=== PATIENT | female | born 1985 | race African-American/Black ===

== ENCOUNTER 2018-09-17 00:38 | Emergency (ER) | payer OTHER ==
[~2018-09-17] VITALS: Ht 162.6 cm; Wt 98.4 kg
--- OUTSIDE RECORDS SUMMARY | 2018-09-17 00:41 | XMS REPORT | Clinical Summary ---
Author Author [facility] Organization [facility] Address Unknown Phone Unavailable Care Team Providers Care Dowel Inspector Name Role Phone Grace Lexii Mccoy ADHESIVE SPRAYER PCP Allergies No Known Allergies Medications End Date Status Medication Sig Dispensed Refills Start Date Active blood glucose Use as 1 Kit 0 meterIndications: New directed to 8 onset type 2 diabetes test glucose mellitus twice a week. Active blood glucose test 2 times 50 Each 3 stripsIndications: New weekly to 8 onset type 2 diabetes test blood mellitus sugar. Active metFORMIN (GLUCOPHAGE) Take 1 tablet 180 tablet 1 500 mg tabletIndications: by mouth 2 8 New onset type 2 diabetes times daily mellitus (with meals). Active lancets 28 2 times 100 Each 3 gaugeIndications: New weekly. 8 onset type 2 diabetes mellitus Active ibuprofen (MOTRIN) 600 mg Take 1 tablet 30 tablet 0 tabletIndications: by mouth 9 Retained dental root every 8 hours as needed for Pain. Active acetaminophen-codeine Take 1 tablet 10 tablet 0 (TYLENOL/CODEINE #3) by mouth 9 300-30 mg per every 4 hours tabletIndications: as needed for Retained dental root Pain. Active lisinopril (PRINIVIL, Take 1 tablet 90 tablet 0 ZESTRIL) 20 mg by mouth 9 tabletIndications: daily Needs Hypertension goal BP labs, (blood pressure) < appointment 130/80, Controlled type 2 prior to diabetes mellitus without additional complication, without refills. long-term current use of insulin Active chlorhexidine (PERIDEX) Swish with 473 mL 0 0.12 % mouth 1/2 oz of 9 washIndications: Active solution in dental caries mouth for 30 seconds and spit. Use twice daily.. Active acetaminophen-codeine Take 1 tablet 12 tablet 0 (TYLENOL/CODEINE #3) by mouth 9 300-30 mg per every 6 hours tabletIndications: Active as needed for dental caries up to 12 doses for Pain. 11/16/2017 Discontinued blood glucose Use as 1 Kit 0 meterIndications: New directed to 6 onset type 2 diabetes test glucose mellitus twice a week. 11/16/2017 Discontinued lancets 28 2 times 100 Each 3 gaugeIndications: New weekly. 6 onset type 2 diabetes mellitus 11/16/2017 Discontinued blood glucose test 2 times 50 Each 3 stripsIndications: New weekly to 6 onset type 2 diabetes test blood mellitus sugar. 11/16/2017 Discontinued hydrochlorothiazide Take 1 tablet 30 tablet 6 (HYDRODIURIL) 25 mg by mouth 6 tabletIndications: daily. Essential hypertension 11/16/2017 Discontinued enalapril (VASOTEC) 5 mg Take 1 tablet 30 tablet 6 tabletIndications: New by mouth 6 onset type 2 diabetes daily. mellitus, Essential hypertension, benign 11/16/2017 Discontinued metFORMIN (GLUCOPHAGE) Take 1 tablet 180 tablet 1 500 mg tabletIndications: by mouth 2 6 New onset type 2 diabetes times daily mellitus (with meals). 11/16/2017 Discontinued amLODIPine (NORVASC) 10 Take 1 tablet 30 tablet 0 mg tabletIndications: by mouth 8 Essential hypertension, daily. benign 11/16/2017 Discontinued metFORMIN (GLUCOPHAGE) Take 1 tablet 180 tablet 1 500 mg tabletIndications: by mouth 2 8 New onset type 2 diabetes times daily mellitus (with meals). 11/16/2017 Discontinued enalapril (VASOTEC) 5 mg Take 1 tablet 30 tablet 6 tabletIndications: New by mouth 8 onset type 2 diabetes daily. mellitus, Essential hypertension, benign 11/16/2017 Discontinued blood glucose Use as 1 Kit 0 meterIndications: New directed to 8 onset type 2 diabetes test glucose mellitus twice a week. 11/16/2017 Discontinued blood glucose test 2 times 50 Each 3 stripsIndications: New weekly to 8 onset type 2 diabetes test blood mellitus sugar. 11/16/2017 Discontinued lancets 28 2 times 100 Each 3 gaugeIndications: New weekly. 8 onset type 2 diabetes mellitus 05/15/2018 tropicamide (MYDRIACYL) Instill 1 15 mL 0 0.5 % ophthalmic Drop in each 8 solutionIndications: New eye daily as onset type 2 diabetes needed for up mellitus to 1 dose (for poor retina scan image). 04/16/2018 Discontinued enalapril (VASOTEC) 5 mg Take 1 tablet 90 tablet 1 tabletIndications: New by mouth 8 onset type 2 diabetes daily. mellitus, Essential hypertension, benign 07/29/2018 Discontinued lisinopril (PRINIVIL) 20 Take 1 tablet 90 tablet 0 mg tabletIndications: by mouth 8 Hypertension goal BP daily. (blood pressure) < 130/80, Controlled type 2 diabetes mellitus without complication, without long-term current use of insulin 08/05/2018 chlorhexidine (PERIDEX) Swish with 473 mL 0 0.12 % mouth 1/2 oz of 9 washIndications: Retained solution in dental root mouth for 30 seconds and spit. Use twice daily.. 08/05/2018 metroNIDAZOLE (FLAGYL) Take 1 tablet 14 tablet 0 500 mg tabletIndications: by mouth 2 9 Bacterial vaginosis, times daily Trichimoniasis for 7 days. 09/10/2018 ibuprofen (MOTRIN) 600 mg Take 1 tablet 30 tablet 0 tabletIndications: Active by mouth 9 dental caries every 6 hours as needed for up to 5 days for Pain. Active Problems Problem Noted Date S/P tubal ligation 05/22/2016 New onset type 2 diabetes mellitus 12/15/2015 Non morbid obesity due to excess calories 12/15/2015 Essential hypertension, benign 05/10/2015 Prediabetes 11/30/2014 Anemia 11/30/2014 Fracture, tooth 10/13/2014 HTN (hypertension) Encounters Care Team Description Date Type Specialty Checo Sol DDS Active dental caries (Primary Dx) 09/05/2018 Office Visit Oral Surgery Checo Sol DDS [place], Phillip A, DDS Surgical follow-up care (Primary Dx) 08/28/2018 Office Visit Oral Surgery 08/28/2018 Travel Nimisha Perez NP Bacterial vaginosis (Primary Dx); Trichimoniasis; Vaginal discharge; Essential hypertension 07/29/2018 Same Day Family Practice Gino Alves MD Hypertension goal BP (blood pressure) < 130/80; Controlled type 2 diabetes mellitus without complication, without long-term current use of insulin 07/29/2018 Refill Family Practice Soo Chaudhari PA Chen, Joseph J, DDS Retained dental root (Primary Dx) 07/22/2018 Office Visit Oral Surgery 07/22/2018 Travel Lexii Edwards NP Hypertension goal BP (blood pressure) < 130/80 (Primary Dx); Controlled type 2 diabetes mellitus without complication, without long-term current use of insulin; Missed menses; Right wrist pain; Snoring; History of tubal ligation 04/16/2018 Office Visit Family Practice Checo Sol DDS Dental caries (Primary Dx) 03/11/2018 Office Visit Oral Surgery Gino Alves MD New onset type 2 diabetes mellitus 12/10/2017 Ancillary Ophthalmology Procedure Gino Alves MD Rosette, Nichole W, NP Encounter to discuss test results (Primary Dx); New onset type 2 diabetes mellitus; Essential hypertension, benign; Cyst of right ovary; Obesity (BMI 30-39.9) 11/16/2017 Office Visit Family Practice Olegario Contreras DMD Dental caries extending into pulp (Primary Dx) 11/16/2017 Office Visit Dentistry Lexii Edwards NP New onset type 2 diabetes mellitus 11/16/2017 Orders Only Family Practice after 09/16/2017 Immunizations Name Dates Previously Given Next Due Lidocaine 1% 5ml Inj 08/20/2014 Ceftriazone 250mg 08/20/2014 Injection Influenza Vaccine 07/29/2018 (Deferred: Other), 05/10/2015 (Deferred: Patient Refused), 08/20/2014 (Deferred: Patient Refused) PNEUMOCOCCAL 23-VALPS 02/17/2016 (Deferred: Patient Refused) VACCINE 25 MCG/0.5 ML INJECTION Family History Medical History Relation Name Comments Diabetes Brother Hypertension Brother Psychiatry Brother anxiety Diabetes Father Hypertension Father Pulmonary Maternal anxiety Grandfather Pulmonary Maternal anxiety Grandmother Diabetes Mother Hypertension Mother Psychiatry Mother anxiety Diabetes Other Diabetes Other Diabetes Paternal Grandfather Hypertension Paternal Grandfather Diabetes Paternal Grandmother Hypertension Paternal Grandmother Diabetes Sister Hypertension Sister Relation Name Status Comments Brother Brother Brother Father Maternal Grandfather Maternal Grandmother Mother Other Other Paternal Grandfather Paternal Grandmother Sister Sister Social History Date Tobacco Use Types Packs/Day Years Used Never Smoker Smokeless Tobacco: Never Used Tobacco Cessation: Counseling Given: No Alcohol Use Drinks/Week oz/Week Comments No 0 Standard 0.0 drinks or equivalent Sex Assigned at Date Recorded Not on file Industry Job Start Date Occupation Not on file Not on file Not on file Travel End Travel History Travel Start No recent travel history available. Last Filed Vital Signs Time Taken Vital Sign Reading 09/05/2018 10:51 AM CDT Blood Pressure 175/107 09/05/2018 10:51 AM CDT Pulse 78 09/05/2018 10:51 AM CDT Temperature 36.7 C (98.1 F) 09/05/2018 10:51 AM CDT Respiratory Rate 18 09/05/2018 10:51 AM CDT Oxygen Saturation 100% - Inhaled Oxygen - Concentration 09/05/2018 8:46 AM CDT Weight 99.3 kg (219 lb) 09/05/2018 8:46 AM CDT Height 157.5 cm (5' 2") 09/05/2018 8:46 AM CDT Body Mass Index 40.06 Plan of Treatment Care Team Description Date Type Specialty Follow up 09/17/2018 Office Visit Oral Surgery Health Maintenance Due Date Last Done Comments DM Foot Exam (Yearly) 07/05/2018 07/05/2017, 01/05/2016 DM HGBA1C (Yearly) 07/09/2018 07/09/2017, 12/01/2015, 01/21/2015, Additional history exists Cervical Cancer Scrn (3 11/29/2018 11/30/2015 Yrs) DM Retinal Exam (Yearly) 12/10/2018 12/10/2017 Goals Goal Patient Associated Recent Progress Patient-Stat Author Goal Type Problems ed? Eat Healthy Lifestyle No [facility] Procedures Comments Procedure Name Priority Date/Time Associated Diagnosis GLUCOSE POC Routine 09/05/2018 9:26 AM CDT POC BACTERIAL VAGINOSIS STAT 07/29/2018 Vaginal discharge 8:04 PM BAILING MACHINE OPERATOR POC TRICHOMONAS STAT 07/29/2018 Vaginal discharge 8:03 PM BAILING MACHINE OPERATOR CHLAM/GC DNA AMPLI Routine 07/29/2018 Vaginal discharge 6:05 PM BAILING MACHINE OPERATOR GLUCOSE POC Routine 07/22/2018 1:31 PM BAILING MACHINE OPERATOR GLUCOSE POC Routine 03/11/2018 2:42 PM CDT OPHTHALMOLOGY RETINAL Routine 12/10/2017 New onset type 2 diabetes SCAN 6:33 PM CDT mellitus after 09/16/2017 Results * GLUCOSE POC (09/05/2018 9:26 AM CDT) Only the most recent of 3 results within the time period is included. Glucose POC 174 (H) 74 - 106 mg/dL [facility] Performing Organization Address City/[facility] Phone Number [facility] * POC BACTERIAL VAGINOSIS (07/29/2018 8:04 PM BAILING MACHINE OPERATOR) POC Bacterial Positive Negative - Negative Vaginosis -- Patient POC Bacterial pass Pass - Pass Vaginosis -- Control Specimen Genital, vaginal * POC TRICHOMONAS (07/29/2018 8:03 PM BAILING MACHINE OPERATOR) POC Trich Positive Negative - Negative Patient POC Trich pass Pass - Pass Control Specimen Genital, vaginal * CHLAM/GC DNA AMPLI (07/29/2018 6:05 PM BAILING MACHINE OPERATOR) Chlamydia trach Negative BT DIAGNOSTIC IMMUNOLOGY N gonorrhoeae Negative BT DIAGNOSTIC This test utilizes [employer]UN[employer] Aptima Combo 2 Assay for target amplification of rRNA for the qualitative detection of Chlamydia trachomatis and Neisseria gonorrhea. Spec VAGINAL SWAB BT OUTPATIENT Description DRAW 2 Specimen Genital, vaginal - Vaginal Swab Performing Organization Address City/[facility] Phone Number [facility] BT OUTPATIENT DRAW 2 * OPHTHALMOLOGY RETINAL SCAN (12/10/2017 6:33 PM CDT) RETINAL NORMAL IRIS SCAN-FINAL RESULT Right Diabetic None IRIS Retinopathy Right Macular None IRIS Edema Right Other None IRIS Suspected Conditions Right Image Gradeable Image IRIS Quality Left Diabetic None IRIS Retinopathy Left Macular None IRIS Edema Left Other None IRIS Suspected Conditions Left Image Gradeable Image IRIS Quality Narrative Performed At Retinal Study Result for BRITTANI SOLIS IRIS BRITTANI SOLIS, a 32 y/o, F (: 1985, ) presented to [facility] on 12-10-2017 for a retinal imaging study of the left and right eyes. Based on the findings of the study, the following is recommended for BRITTANI SOLIS Normal Scan: Please advise the patient to return for another scan in 1 year. Interpreting Provider's Comments:No comments provided Right Eye Findings: Normal Result.Negative for Diabetic Retinopathy. Left Eye Findings: Normal Result.Negative for Diabetic Retinopathy. This result was electronically signed by Austin Roque MD, , Taxonomy: [id number] on 12-10-2017 11:33:13 [facility] time. NOTE:Any pathology noted on this diabetic retinal evaluation should be confirmed by an appropriate ophthalmic examination. Performing Organization Address City/State/Zipcode Phone Number IRIS after 09/16/2017 Insurance Type Payer Benefit Subscriber ID Effective Phone Address Plan / Dates Group [facility] xxxxxxxxx [phone] [facility] [facility] [id number] [place] [address]
--- OUTSIDE RECORDS SUMMARY | 2018-09-17 00:42 | XMS REPORT ---
Author Author [facility] Address Unknown Phone Unavailable Care Team Providers Care Nail Artist Name Role Phone KATHERINETRI GARCIA DENNISE Unavailable Unavailable ABEBE BOJORQUEZ Unavailable Unavailable JUNIOR ISRAEL Unavailable Unavailable Problems This patient has no known problems. Allergies, Adverse Reactions, Alerts This patient has no known allergies or adverse reactions. Medications This patient has no known medications. Encounters Start Date/Time End Date/Time Encounter Type Admission Type Attending [facility] Facility Care Department Encounter ID 2018-09-17 00:00:00 2018-09-17 00:00:00 Outpatient [facility] [id number] 2018-09-12 00:00:00 2018-09-12 00:00:00 Outpatient [facility] [id number] 2018-09-05 08:42:12 2018-09-05 08:42:12 Outpatient [facility] [id number] 2018-08-28 13:14:18 2018-08-28 13:14:18 Outpatient [facility] [id number] 2018-08-08 00:00:00 2018-08-08 00:00:00 Outpatient [facility] [id number] 2018-07-29 15:58:04 2018-07-29 15:58:04 Outpatient [facility] [id number] 2018-07-22 13:19:44 2018-07-22 13:19:44 Outpatient [facility] [id number] 2018-07-22 00:00:00 2018-07-22 00:00:00 Outpatient [facility] [id number] 2018-06-18 00:00:00 2018-06-18 00:00:00 Outpatient [facility] [id number] 2018-06-06 00:00:00 2018-06-06 00:00:00 Outpatient [facility] [id number] 2018-05-24 00:00:00 2018-05-24 00:00:00 Outpatient [facility] [id number] 2018-04-16 14:28:04 2018-04-16 14:28:04 Outpatient [facility] [id number] 2018-04-08 00:00:00 2018-04-08 00:00:00 Outpatient [facility] [id number] 2018-04-03 00:00:00 2018-04-03 00:00:00 Outpatient [facility] [id number] 2018-04-01 00:00:00 2018-04-01 00:00:00 Outpatient [facility] [id number] 2018-03-20 00:00:00 2018-03-20 00:00:00 Outpatient [facility] [id number] 2018-03-12 00:00:00 2018-03-12 00:00:00 Outpatient [facility] [id number] 2018-03-11 14:25:05 2018-03-11 14:25:05 Outpatient [facility] [id number] 2018-03-05 00:00:00 2018-03-05 00:00:00 Outpatient [facility] [id number] 2018-02-28 00:00:00 2018-02-28 00:00:00 Outpatient [facility] [id number] 2018-02-15 00:00:00 2018-02-15 00:00:00 Outpatient [facility] [id number] 2017-12-10 15:16:46 2017-12-10 15:16:46 Outpatient [facility] [id number] 2017-12-10 00:00:00 2017-12-10 00:00:00 Outpatient [facility] [id number] 2017-11-21 00:00:00 2017-11-21 00:00:00 Outpatient [facility] [id number] 2017-11-16 09:42:25 2017-11-16 09:42:25 Outpatient [facility] [id number] 2017-11-16 09:08:40 2017-11-16 09:08:40 Outpatient [facility] [id number] 2017-11-16 00:00:00 2017-11-16 00:00:00 Outpatient [facility] [id number] 2017-10-25 00:00:00 2017-10-25 00:00:00 Outpatient [facility] [id number] 2017-09-19 00:00:00 2017-09-19 00:00:00 Outpatient [facility] [id number] 2017-08-10 00:00:00 2017-08-10 00:00:00 Outpatient [facility] [id number] 2017-08-02 00:00:00 2017-08-02 00:00:00 [facility]patient [facility] [id number] 2017-07-19 08:54:33 2017-07-19 08:54:33 Outpatient [facility] [id number] 2017-07-09 09:19:31 2017-07-09 09:19:31 Outpatient [facility] [id number] 2017-07-05 10:16:57 2017-07-05 10:16:57 Outpatient [facility] [id number] Results Test Description Test Time Test Comments Text Results Atomic Results Result Comments RAD, SHOULDER, COMPLETE (MIN 2 VIEWS), LEFT 2018-09-16 02:57:00 Reason for exam:- >SHOULDER PAINs/s started yesterday after waking up. denies injuryIs the patient ?->NoShould this be performed at the bedside?->No FINAL REPORT RAD, SHOULDER, COMPLETE (MIN 2 VIEWS), LEFT CLINICAL INDICATION: SHOULDER PAIN COMPARISON: None FINDINGS: Three views of the left shoulder were obtained. There is no acute fracture or dislocation. The joint spaces are maintained. There is a small well-corticated benign ossific density adjacent to the humeral head, nonspecific. IMPRESSION: No acute fracture or dislocation. Signed: Stephany Camport Verified Date/Time: 09/16/2018 02:57:36 Reading Location: [address] Body Reading Room , MAXILLOFACIAL AREA, CONTRAST 2018-09-07 02:32:[address], MAXILLOFACIAL AREA, CONTRAST CLINICAL INDICATION: Mass, lump or swelling, maxface COMPARISON: None TECHNIQUE: Postcontrast CT of the frontal sinus through the bilateral lung apices . Coronal and sagittal reconstructions were performed. DOSE REDUCTION: Dose modulation, iterative reconstruction, and/or weight-based adjustment of the mA/kV was utilized to reduce the radiation dose to as low as reasonably achievable. FINDINGS: Multiple dental caries and missing teeth. Lucency surrounding the absent first left maxillary premolar with adjacent cortical disruption of the buccal aspect of the alveolar ridge. Periapical lucency surrounding the third right mandibular molar. Subcutaneous soft tissue stranding of the right cheek and buccal aspect of the right mandible without definite drainable fluid collection. Multiple enlarged cervical lymph nodes bilaterally the largest of which is a right level 2A lymph node measuring up to 1.4 cm in the short axis. No facial bone fracture.Minimal polypoid mucosal thickening in the bilateral maxillary sinuses.Well aerated mastoids. Symmetric globes without retrobulbar hemorrhage.The salivary glands are symmetrical and unremarkable in appearance. Thyroid gland is unremarkable. No visualized pathologically enlarged mediastinal lymph nodes. Visualized lungs are clear. Cervical vasculature is unremarkable. Cervical spine alignment is within normal limits. Vertebral body heights are maintained. IMPRESSION:Poor dentition with multiple missing teeth, periapical lucencies and dental caries as above. There is a periapical lucency surrounding the right third mandibular molar with adjacent inflammatory changes in the right cheek suggesting odontogenic origin of a facial cellulitis. No drainable fluid collection is identified on this examination. Multiple enlarged cervical lymph nodes bilaterally may be reactive however recommend short interval follow-up to ensure resolution after treatment. Signed: Yarely Camacho MDReport Verified Date/Time: 09/07/2018 02:32:06 Reading Location: [address] Transitional Reading Room EN, URINE 2018-09-07 01:23:00 TEST URINE (BEAKER) (test tson=557) Negative BASIC METABOLIC [id number] 01:18:00* Test Item Value Reference Range Comments SODIUM (BEAKER) (test kqyz=854) 138 meq/L 135-148 POTASSIUM (BEAKER) (test dqjt=473) 3.4 meq/L 3.6-5.5 CHLORIDE (BEAKER) (test wpnr=109) 104 meq/L 98-106 CO2 (BEAKER) (test oqsi=293) 28 meq/L 24-32 BLOOD UREA NITROGEN (BEAKER) (test dbaf=151) 12 mg/dL 10-26 CREATININE (BEAKER) (test ceqv=273) 0.61 mg/dL 0.50-1.20 GLUCOSE RANDOM (BEAKER) (test eljb=490) 138 mg/dL 70-110 CALCIUM (BEAKER) (test mgvb=310) 8.6 mg/dL 8.5-10.5 EGFR (BEAKER) (test jimq=6960) 135 mL/min/1.73 sq m ESTIMATED GFR IS NOT ACCURATE CREATININE CLEARANCE IN PREDICTING GLOMERULAR FILTRATION RATE. ESTIMATED GFR IS NOT APPLICABLE FOR DIALYSIS PATIENTS. CBC W/PLT COUNT & AUTO [id number] 01:02:00* Test Item Value Reference Range Comments WHITE BLOOD CELL COUNT (BEAKER) (test ksli=120) 10.0 K/ L 4.0-10.0 RED BLOOD CELL COUNT (BEAKER) (test uezl=349) 4.36 M/ L 4.00-5.00 HEMOGLOBIN (BEAKER) (test scrh=701) 12.8 GM/DL 12.0-15.0 HEMATOCRIT (BEAKER) (test zwod=140) 39.5 % 36.0-45.0 MEAN CORPUSCULAR VOLUME (BEAKER) (test stty=442) 90.6 fL 82.0-99.0 MEAN CORPUSCULAR HEMOGLOBIN (BEAKER) (test rckq=019) 29.2 pg 27.0-33.0 MEAN CORPUSCULAR HEMOGLOBIN CONC (BEAKER) (test druz=209) 32.3 GM/DL 32.0-36.0 RED CELL DISTRIBUTION WIDTH (BEAKER) (test sqwy=325) 13.5 % 10.3-14.2 PLATELET COUNT (BEAKER) (test zlud=720) 275 K/CU MM 150-430 MEAN PLATELET VOLUME (BEAKER) (test xzxt=036) 8.1 fL 6.5-10.5 NEUTROPHILS RELATIVE PERCENT (BEAKER) (test vpca=442) 65 % LYMPHOCYTES RELATIVE PERCENT (BEAKER) (test bwta=475) 26 % MONOCYTES RELATIVE PERCENT (BEAKER) (test pscx=966) 7 % EOSINOPHILS RELATIVE PERCENT (BEAKER) (test jgdq=391) 1 % BASOPHILS RELATIVE PERCENT (BEAKER) (test aduj=844) 1 % NEUTROPHILS ABSOLUTE COUNT (BEAKER) (test iwcq=696) 6.54 K/ L 1.80-8.00 LYMPHOCYTES ABSOLUTE COUNT (BEAKER) (test wscg=036) 2.59 K/ L 1.48-4.50 MONOCYTES ABSOLUTE COUNT (BEAKER) (test mpys=793) 0.69 K/ L 0.00-1.30 EOSINOPHILS ABSOLUTE COUNT (BEAKER) (test ctmb=776) 0.11 K/ L 0.00-0.50 BASOPHILS ABSOLUTE COUNT (BEAKER) (test xejt=940) 0.07 K/ L 0.00-0.20 BASIC METABOLIC [id number] 11:35:00* Test Item Value Reference Range Comments SODIUM (BEAKER) (test troh=293) 140 meq/L 135-148 POTASSIUM (BEAKER) (test gbtj=424) 3.9 meq/L 3.6-5.5 CHLORIDE (BEAKER) (test izzp=459) 101 meq/L 98-106 CO2 (BEAKER) (test ngmu=860) 29 meq/L 24-32 BLOOD UREA NITROGEN (BEAKER) (test hbmq=301) 7 mg/dL 10-26 CREATININE (BEAKER) (test ropc=196) 0.51 mg/dL 0.50-1.20 GLUCOSE RANDOM (BEAKER) (test cylf=195) 180 mg/dL 70-110 CALCIUM (BEAKER) (test ievp=688) 9.0 mg/dL 8.5-10.5 EGFR (BEAKER) (test fcnr=4267) 167 mL/min/1.73 sq m ESTIMATED GFR IS NOT ACCURATE CREATININE CLEARANCE IN PREDICTING GLOMERULAR FILTRATION RATE. ESTIMATED GFR IS NOT APPLICABLE FOR DIALYSIS PATIENTS. CBC W/PLT COUNT & AUTO [id number] 11:21:00* Test Item Value Reference Range Comments WHITE BLOOD CELL COUNT (BEAKER) (test dxzo=666) 7.2 K/ L 4.0-10.0 RED BLOOD CELL COUNT (BEAKER) (test zwtw=343) 4.23 M/ L 4.00-5.00 HEMOGLOBIN (BEAKER) (test kugk=606) 11.7 GM/DL 12.0-15.0 HEMATOCRIT (BEAKER) (test uctk=368) 37.3 % 36.0-45.0 MEAN CORPUSCULAR VOLUME (BEAKER) (test nwck=065) 88.0 fL 82.0-99.0 MEAN CORPUSCULAR HEMOGLOBIN (BEAKER) (test lzss=344) 27.8 pg 27.0-33.0 MEAN CORPUSCULAR HEMOGLOBIN CONC (BEAKER) (test ygiv=893) 31.5 GM/DL 32.0-36.0 RED CELL DISTRIBUTION WIDTH (BEAKER) (test okpg=853) 14.7 % 10.3-14.2 PLATELET COUNT (BEAKER) (test yuap=853) 321 K/CU MM 150-430 MEAN PLATELET VOLUME (BEAKER) (test cpxr=998) 9.1 fL 6.5-10.5 NEUTROPHILS RELATIVE PERCENT (BEAKER) (test emsp=130) 60 % LYMPHOCYTES RELATIVE PERCENT (BEAKER) (test yfuo=610) 33 % MONOCYTES RELATIVE PERCENT (BEAKER) (test cbnm=343) 5 % EOSINOPHILS RELATIVE PERCENT (BEAKER) (test lyxm=403) 2 % BASOPHILS RELATIVE PERCENT (BEAKER) (test sfor=505) 1 % NEUTROPHILS ABSOLUTE COUNT (BEAKER) (test ftvg=026) 4.30 K/ L 1.80-8.00 LYMPHOCYTES ABSOLUTE COUNT (BEAKER) (test weyc=986) 2.37 K/ L 1.48-4.50 MONOCYTES ABSOLUTE COUNT (BEAKER) (test hvva=318) 0.36 K/ L 0.00-1.30 EOSINOPHILS ABSOLUTE COUNT (BEAKER) (test hfah=248) 0.12 K/ L 0.00-0.50 BASOPHILS ABSOLUTE COUNT (BEAKER) (test truj=994) 0.06 K/ L 0.00-0.20 [id number] 11:20:00* Test Item Value Reference Range Comments PROTIME (BEAKER) (test vkow=820) 11.0 seconds 9.8-12.0 INR (BEAKER) (test tynz=023) 1.0 <=5.9 PARTIAL THROMBOPLASTIN TIME (BEAKER) (test irhk=893) 23.5 seconds 25.8-34.5 RECOMMENDED COUMADIN/WARFARIN INR THERAPY RANGESSTANDARD DOSE: 2.0 - 3.0 Inclu lisa: PROPHYLAXIS for venous thrombosis, systemic embolization; TREATMENT for jacquelyn ous thrombosis and/or pulmonary embolus.HIGH RISK: Target INR is 2.5-3.5 for pat ients with mechanical heart valves.[id number] 11:00:00* Test Item Value Reference Range Comments D-DIMER QUANTITATIVE (BEAKER) (test rsux=733) 0.92 MG/L FEU <0.50 REGARDING D-DIMER RESULTS: Results of this D-Dimer test should always be interpr eted in conjunction with the patient's medical history, clinical presentation an d other findings. DVT clinical diagnosis should not be based on the results of Belem OLIVAREZ D-Dimer alone.RAD, FOREARM, 2 VIEWS, [id number] 10:43:00Reason for exam:->ARM INJURYIs the patient ?->NoShould this be performed at the bedside?->NoFINAL REPORT TECHNIQUE: Frontal and lateral views of the right forearm. Frontal, oblique, and lateral views of the right hand. INDICATION: Arm injury. COMPARISON: None. FINDINGS:Right forearm:No acute fractures or dislocations.Joint spaces are within normal limits.Soft tissue swelling of the dorsal aspect of the distal forearm. Right hand:No acute fracture or dislocation.Possible old, healed fracture of the metacarpal of the small finger.The joint spaces are within normal limits.Soft tissue swelling of the hand. IMPRESSION:No acute osseous abnormalities of the right hand or forearm. Soft tissue swelling of the distal forearm and hand. Signed: Giana Cano Verified Date/Time: 03/23/2018 10:43:02 Reading Location: [address] Body Reading Room , HAND, 3 VIEWS, [id number] 10:43:00Reason for exam:->ARM INJURYIs the patient ?->NoShould this be performed at the bedside?->NoFINAL REPORT TECHNIQUE: Frontal and lateral views of the right forearm. Frontal, oblique, and lateral views of the right hand. INDICATION: Arm injury. COMPARISON: None. FINDINGS:Right forearm:No acute fractures or dislocations.Joint spaces are within normal limits.Soft tissue swelling of the dorsal aspect of the distal forearm. Right hand:No acute fracture or dislocation.Possible old, healed fracture of the metacarpal of the small finger.The joint spaces are within normal limits.Soft tissue swelling of the hand. IMPRESSION:No acute osseous abnormalities of the right hand or forearm. Soft tissue swelling of the distal forearm and hand. Signed: Giana Cano Verified Date/Time: 03/23/2018 10:43:02 Reading Location: [address] Body Reading Room ALYSIS W/ [id number] 04:17:00* Test Item Value Reference Range Comments COLOR (BEAKER) (test qtad=505) Yellow CLARITY (BEAKER) (test iyoh=624) Hazy SPECIFIC GRAVITY UA (BEAKER) (test odmq=230) 1.025 1.001-1.035 PH UA (BEAKER) (test ggnu=517) 6.0 5.0-8.0 PROTEIN UA (BEAKER) (test eong=114) 30 mg/dL Negative GLUCOSE UA (BEAKER) (test mecx=632) Negative Negative KETONES UA (BEAKER) (test qdtz=422) 15 mg/dL Negative BILIRUBIN UA (BEAKER) (test iujp=712) Positive Negative BLOOD UA (BEAKER) (test pkpn=443) Large Negative NITRITE UA (BEAKER) (test czmp=005) Negative Negative LEUKOCYTE ESTERASE UA (BEAKER) (test diaf=404) Small Negative UROBILINOGEN UA (BEAKER) (test rocq=098) 1.0 mg/dL 0.2-1.0 BACTERIA (BEAKER) (test vhio=865) Few MUCUS (BEAKER) (test vnen=1129) Many RBC UA-MANUAL (BEAKER) (test zcgw=3318) 50-100 /HPF WBC UA-MANUAL (BEAKER) (test iveb=8053) 20-50 /HPF SQUAMOUS EPITHELIAL MANUAL (BEAKER) (test tbus=6648) 5-10 /HPF SOURCE(BEAKER) (test hzhh=7330) COMPREHENSIVE METABOLIC [id number] 04:14:00* Test Item Value Reference Range Comments TOTAL PROTEIN (BEAKER) (test dlwn=202) 8.2 gm/dL 6.0-8.5 ALBUMIN (BEAKER) (test mdmw=6815) 3.6 g/dL 3.5-5.0 ALKALINE PHOSPHATASE (BEAKER) (test hdrj=087) 75 U/L 30-115 BILIRUBIN TOTAL (BEAKER) (test wwdw=058) 0.1 mg/dL 0.1-1.2 SODIUM (BEAKER) (test ymht=458) 143 meq/L 135-148 POTASSIUM (BEAKER) (test ktpt=030) 3.8 meq/L 3.6-5.5 CHLORIDE (BEAKER) (test ppzv=543) 100 meq/L 98-106 CO2 (BEAKER) (test husc=613) 32 meq/L 24-32 BLOOD UREA NITROGEN (BEAKER) (test vrji=570) 14 mg/dL 10-26 CREATININE (BEAKER) (test rmfh=934) 0.60 mg/dL 0.50-1.20 GLUCOSE RANDOM (BEAKER) (test qwkx=462) 127 mg/dL 70-110 CALCIUM (BEAKER) (test yagz=097) 8.8 mg/dL 8.5-10.5 AST (SGOT) (BEAKER) (test coka=688) 37 U/L 5-40 ALT (SGPT) (BEAKER) (test ihyc=480) 61 U/L 5-50 EGFR (BEAKER) (test noqn=9937) 139 mL/min/1.73 sq m ESTIMATED GFR IS NOT ACCURATE CREATININE CLEARANCE IN PREDICTING GLOMERULAR FILTRATION RATE. ESTIMATED GFR IS NOT APPLICABLE FOR DIALYSIS PATIENTS. [id number] 04:14:00* Test Item Value Reference Range Comments LIPASE (BEAKER) (test yzii=810) 105 U/L 40-240 SCREEN, [id number] 04:12:00* Test Item Value Reference Range Comments TEST URINE (BEAKER) (test ohjr=840) Negative CBC W/PLT COUNT & AUTO [id number] 04:06:00* Test Item Value Reference Range Comments WHITE BLOOD CELL COUNT (BEAKER) (test xwln=484) 4.6 10e3/ L 4.0-10.0 RED BLOOD CELL COUNT (BEAKER) (test qbfs=262) 4.13 10e6/ L 4.00-5.00 HEMOGLOBIN (BEAKER) (test wqih=260) 11.8 g/dL 12.0-15.0 HEMATOCRIT (BEAKER) (test yfyv=011) 36.1 % 36.0-45.0 MEAN CORPUSCULAR VOLUME (BEAKER) (test wzcu=240) 87.4 fL 82.0-99.0 MEAN CORPUSCULAR HEMOGLOBIN (BEAKER) (test nget=288) 28.5 pg 27.0-33.0 MEAN CORPUSCULAR HEMOGLOBIN CONC (BEAKER) (test ablg=519) 32.6 g/dL 32.0-36.0 RED CELL DISTRIBUTION WIDTH (BEAKER) (test tgpb=351) 14.1 % 10.3-14.2 PLATELET COUNT (BEAKER) (test usqh=421) 270 10e3/ L 150-430 MEAN PLATELET VOLUME (BEAKER) (test dgxl=486) 7.8 fL 6.5-10.5 NEUTROPHILS RELATIVE PERCENT (BEAKER) (test mzzz=588) 32 % LYMPHOCYTES RELATIVE PERCENT (BEAKER) (test klyp=694) 56 % MONOCYTES RELATIVE PERCENT (BEAKER) (test exkc=343) 9 % EOSINOPHILS RELATIVE PERCENT (BEAKER) (test bchx=245) 2 % BASOPHILS RELATIVE PERCENT (BEAKER) (test bmub=405) 1 % NEUTROPHILS ABSOLUTE COUNT (BEAKER) (test hocr=187) 1.50 10e3/ L 1.80-8.00 LYMPHOCYTES ABSOLUTE COUNT (BEAKER) (test ctmm=957) 2.61 10e3/ L 1.48-4.50 MONOCYTES ABSOLUTE COUNT (BEAKER) (test dygf=402) 0.40 10e3/ L 0.00-1.30 EOSINOPHILS ABSOLUTE COUNT (BEAKER) (test peit=683) 0.07 10e3/ L 0.00-0.50 BASOPHILS ABSOLUTE COUNT (BEAKER) (test gkgn=571) 0.05 10e3/ L 0.00-0.20 URINALYSIS W/ [id number] 02:29:00* Test Item Value Reference Range Comments COLOR (BEAKER) (test mdat=552) [place] CLARITY (BEAKER) (test oush=010) Cloudy SPECIFIC GRAVITY UA (BEAKER) (test oifj=939) 1.033 1.001-1.035 PH UA (BEAKER) (test nzjj=865) 5.5 5.0-8.0 PROTEIN UA (BEAKER) (test veay=814) 30 mg/dL Negative GLUCOSE UA (BEAKER) (test tyjp=649) Negative Negative KETONES UA (BEAKER) (test guas=360) Trace Negative BILIRUBIN UA (BEAKER) (test kaxm=707) Positive Negative BLOOD UA (BEAKER) (test vahb=015) Large Negative NITRITE UA (BEAKER) (test zvmy=043) Negative Negative LEUKOCYTE ESTERASE UA (BEAKER) (test ndmy=849) Small Negative UROBILINOGEN UA (BEAKER) (test ufxi=321) 1.0 mg/dL 0.2-1.0 BACTERIA (BEAKER) (test jyqg=711) Occasional MUCUS (BEAKER) (test qlge=8902) Many RBC UA-MANUAL (BEAKER) (test ujco=4179) >100 /HPF WBC UA-MANUAL (BEAKER) (test qthm=4764) 50-100 /HPF SQUAMOUS EPITHELIAL MANUAL (BEAKER) (test ewsz=9874) 5-10 /HPF SOURCE(BEAKER) (test jrxa=3246) SCREEN, [id number] 02:18:00* Test Item Value Reference Range Comments TEST URINE (BEAKER) (test wprm=127) Negative
--- OUTSIDE RECORDS SUMMARY | 2018-09-17 00:42 | XMS REPORT | Clinical Summary ---
Author Author BARBARA [facility] Address Unknown Phone Unavailable Care Team Providers Care Probate Clerk Name Role Phone Pcp, No PCP Unavailable Allergies No Known Allergies Medications End Date Status Medication Sig Dispensed Refills Start Date Active amLODIPine (NORVASC) 10 Take 10 mg by 0 MG tablet mouth daily. Active chlorhexidine (PERIDEX) Swish with 0 0.12 % solution 1/2 oz of 9 solution in mouth for 30 seconds and spit. Use twice daily.. 09/17/2018 Active clindamycin (CLEOCIN) 150 Take 2 80 capsule 0 201 MG capsule capsules (300 9 mg total) by mouth 4 (four) times daily for 10 days. 09/17/2018 Active ibuprofen (ADVIL,MOTRIN) Take 1 tablet 40 tablet 0 600 MG tablet (600 mg 9 total) by mouth every 6 (six) hours as needed for Pain for up to 10 days. 09/26/2018 Active ibuprofen (ADVIL,MOTRIN) Take 1 tablet 21 tablet 0 800 MG tablet (800 mg 9 total) by mouth 3 (three) times daily for 10 days. 09/26/2018 Active cyclobenzaprine Take 1 tablet 20 tablet 0 (FLEXERIL) 10 MG tablet (10 mg total) 9 by mouth 2 (two) times daily as needed for Muscle spasms for up to 10 days. 09/26/2017 Discontinued labetalol (NORMODYNE) 200 0 12/25/201 MG tablet 4 03/23/2018 Discontinued dicyclomine (BENTYL) 20 Take 1 tablet 15 tablet 0 201 mg tablet (20 mg total) 8 by mouth every 8 (eight) hours as needed (Abdominal pain/cramps.) for up to 7 doses. 10/03/2017 nitrofurantoin, Take 1 14 capsule 0 macrocrystal-monohydrate, capsule (100 8 (MACROBID) 100 MG capsule mg total) by mouth 2 (two) times daily for 7 days. 04/02/2018 acetaminophen-codeine Take 1-2 15 tablet 0 (TYLENOL #3) 300-30 mg tablets by 8 per tablet mouth every 6 (six) hours as needed for Pain for up to 10 days. Max Daily Amount: 8 tablets 09/10/2018 ibuprofen (ADVIL,MOTRIN) Take 600 mg 0 600 MG tablet by mouth. 9 Active Problems Not on file Encounters Care Team Description Date Type Specialty Malinda Parks MD Acute pain of left shoulder (Primary Dx) 09/16/2018 Emergency Emergency Medicine 09/16/2018 Travel Malinda Parks MD Odontogenic infection of jaw (Primary Dx); Facial cellulitis; Morbid obesity, BMI not known (HCC) 09/06/2018 Emergency Emergency Medicine - 09/07/2018 09/06/2018 Travel Yogesh Cano MD Pain and swelling of right forearm (Primary Dx); Hypertension, unspecified type 03/23/2018 Emergency Emergency Medicine Teddy Dawson MD Periumbilical abdominal pain (Primary Dx); Acute cystitis with hematuria 09/26/2017 Emergency Emergency Medicine after 09/16/2017 Family History Medical History Relation Name Comments Diabetes Father Hypertension Father Diabetes Mother Hypertension Mother Relation Name Status Comments Father Mother Social History Date Tobacco Use Types Packs/Day Years Used Never Smoker Smokeless Tobacco: Never Used Alcohol Use Drinks/Week oz/Week Comments No Sex Assigned at Date Recorded Not on file Industry Job Start Date Occupation Not on file Not on file Not on file Travel End Travel History Travel Start No recent travel history available. Last Filed Vital Signs Time Taken Vital Sign Reading 09/16/2018 5:01 AM CDT Blood Pressure 178/111 09/16/2018 5:01 AM CDT Pulse 98 09/16/2018 1:53 AM CDT Temperature 36.9 C (98.5 F) 09/16/2018 5:01 AM CDT Respiratory Rate 20 09/16/2018 5:01 AM CDT Oxygen Saturation 100% - Inhaled Oxygen - Concentration 09/16/2018 1:53 AM CDT Weight 98.4 kg (217 lb) 03/23/2018 10:01 AM CDT Height 162.6 cm (5' 4") 09/16/2018 1:53 AM CDT Body Mass Index 37.25 Plan of Treatment Not on file Procedures Comments Procedure Name Priority Date/Time Associated Diagnosis XR SHOULDER LEFT COMPLETE STAT 09/16/2018 MIN 2 VIEWS 2:[address] MAXILLOFACIAL WITH IV STAT 09/07/2018 CONTRAST 1:43 AM CDT CBC W/PLT COUNT & AUTO STAT 09/07/2018 DIFFERENTIAL 12:52 AM CDT SCREEN, URINE STAT 09/07/2018 12:52 AM CDT BASIC METABOLIC PANEL (7) STAT 09/07/2018 12:52 AM CDT CBC W/PLT COUNT & AUTO STAT 09/07/2018 DIFFERENTIAL 12:52 AM CDT VENOUS DOPPLER ARM, RIGHT Today 03/23/2018 1:00 PM CDT CBC W/PLT COUNT & AUTO STAT 03/23/2018 DIFFERENTIAL 11:08 AM CDT CBC W/PLT COUNT & AUTO STAT 03/23/2018 DIFFERENTIAL 11:08 AM CDT BASIC METABOLIC PANEL (7) STAT 03/23/2018 11:08 AM CDT PT/APTT STAT 03/23/2018 10:39 AM CDT D-DIMER STAT 03/23/2018 10:39 AM CDT XR HAND RIGHT 3 VIEW STAT 03/23/2018 10:34 AM CDT XR FOREARM RIGHT 2 VIEW STAT 03/23/2018 10:34 AM CDT SCREEN, URINE STAT 09/26/2017 4:01 AM CDT URINALYSIS W/ MICROSCOPIC STAT 09/26/2017 4:01 AM CDT CBC W/PLT COUNT & AUTO STAT 09/26/2017 DIFFERENTIAL 3:49 AM CDT COMPREHENSIVE METABOLIC STAT 09/26/2017 PANEL 3:49 AM CDT LIPASE STAT 09/26/2017 3:49 AM CDT CBC W/PLT COUNT & AUTO STAT 09/26/2017 DIFFERENTIAL 3:49 AM CDT after 09/16/2017 Results * XR shoulder complete 2 views min left (09/16/2018 2:51 AM CDT) Narrative Performed At FINAL REPORT [facility] RAD, SHOULDER, COMPLETE (MIN 2 VIEWS), LEFT CLINICAL INDICATION:SHOULDER PAIN COMPARISON: None FINDINGS: Three views of the left shoulder were obtained. There is no acute fracture or dislocation. The joint spaces are maintained. There is a small well-corticated benign ossific density adjacent to the humeral head, nonspecific. IMPRESSION: No acute fracture or dislocation. Signed: Jaspreet Camp MD Report Verified Date/Time:09/16/2018 02:57:36 Reading Location: [address] Body Reading Room Procedure Note Interface, External Ris In - 09/16/2018 2:59 AM CDT FINAL REPORT RAD, SHOULDER, COMPLETE (MIN 2 VIEWS), LEFT CLINICAL INDICATION: SHOULDER PAIN COMPARISON: None FINDINGS: Three views of the left shoulder were obtained. There is no acute fracture or dislocation. The joint spaces are maintained. There is a small well-corticated benign ossific density adjacent to the humeral head, nonspecific. IMPRESSION: No acute fracture or dislocation. Signed: Jaspreet Camp MD Report Verified Date/Time: 09/16/2018 02:57:36 Reading Location: [facility] [id number] CT Body Reading Room Performing Organization Address City/State/Zipcode Phone Number [facility] * CT maxillofacial with IV contrast (09/07/2018 1:43 AM CDT) Narrative Performed At FINAL REPORT [facility] CT, MAXILLOFACIAL AREA, CONTRAST CLINICAL INDICATION: Mass, [...] in the short axis. No facial bone fracture. Minimal polypoid mucosal thickening in the bilateral maxillary sinuses. Well aerated mastoids. Symmetric globes without retrobulbar hemorrhage. The salivary glands are symmetrical and unremarkable in appearance. Thyroid gland is unremarkable. No visualized pathologically enlarged mediastinal lymph nodes. Visualized lungs are clear. Cervical vasculature is unremarkable. Cervical spine alignment is within normal limits. Vertebral body heights are maintained. IMPRESSION: Poor dentition with multiple missing teeth, periapical lucencies [...] ensure resolution after treatment. Signed: Yarely Camacho MD Report Verified Date/Time:09/07/2018 02:32:06 Reading Location: [address] Transitional Reading Room Procedure Note Interface, External Ris In - 09/07/2018 2:34 AM CDT FINAL REPORT CT, MAXILLOFACIAL AREA, CONTRAST CLINICAL [...] in the short axis. No facial bone fracture. Minimal polypoid mucosal thickening in the bilateral maxillary sinuses. Well aerated mastoids. Symmetric globes without retrobulbar hemorrhage. The salivary glands are symmetrical and unremarkable in appearance. Thyroid gland is unremarkable. No visualized pathologically enlarged mediastinal lymph nodes. Visualized lungs are clear. Cervical vasculature is unremarkable. Cervical spine alignment is within normal limits. Vertebral body heights are maintained. IMPRESSION: Poor dentition with multiple missing teeth, periapical lucencies [...] ensure resolution after treatment. Signed: Yarely Camacho MD Report Verified Date/Time: 09/07/2018 02:32:06 Reading Location: [address] Transitional Reading Room Performing Organization Address City/State/Zipcode Phone Number [facility] * CBC with platelet count + automated diff (09/07/2018 12:52 AM CDT) Only the most recent of 3 results within the time period is included. WBC 10.0 4.0 - 10.0 K/L [facility], [facility] [place] RBC 4.36 4.00 - 5.00 M/L [facility], [facility], [facility] Hemoglobin 12.8 12.0 - 15.0 GM/DL [facility] [place] Hematocrit 39.5 36.0 - 45.0 % [facility] [place] MCV 90.6 82.0 - 99.0 fL [facility] [place] MCH 29.2 27.0 - 33.0 pg [facility] [place] MCHC 32.3 32.0 - 36.0 GM/DL [facility] [place] RDW 13.5 10.3 - 14.2 % [facility] [place] Platelets 275 150 - 430 K/CU MM [facility] [place] MPV 8.1 6.5 - 10.5 fL [facility] [place] % Neutros 65 % [facility] % Lymphs 26 % [facility] % Monos 7 % [facility] % Eos 1 % [facility] % Baso 1 % [facility] # Neutros 6.54 1.80 - 8.00 K/L [facility] [place] # Lymphs 2.59 1.48 - 4.50 K/L [facility] [place] # Monos 0.69 0.00 - 1.30 K/L [facility] [place] # Eos 0.11 0.00 - 0.50 K/L [facility] [place] # Baso 0.07 0.00 - 0.20 K/L [facility], [facility] [place] Specimen Blood - Arm, Left Performing Organization Address [facility] Phone Number [facility] [address] [place], [place] [id number] [facility] * Screen, urine (09/07/2018 12:52 AM CDT) Only the most recent of 2 results within the time period is included. Preg Test, Ur Negative [facility] Specimen Urine - Urine, Clean Catch Performing Organization Address [facility] [place] Phone Number [place] [id number] [place], [place] [phone] [facility] * Basic Metabolic Panel (09/07/2018 12:52 AM CDT) Only the most recent of 2 results within the time period is included. Sodium 138 135 - 148 meq/L [facility] Potassium 3.4 (L) 3.6 - 5.5 meq/L [facility] Chloride 104 98 - 106 meq/L [facility] CO2 28 24 - 32 meq/L [facility] BUN 12 10 - 26 mg/dL [facility] Creatinine 0.61 0.50 - 1.20 mg/dL [facility], [facility] Glucose 138 (H) 70 - 110 mg/dL [facility] Calcium 8.6 8.5 - 10.5 mg/dL [facility] EGFR 135Comment: ESTIMATED GFR IS mL/min/1.73 sq m BARBARA FORRESTER NOT ACCURATE CREATININE [facility] MEDICAL CLEARANCE IN PREDICTING [facility] GLOMERULAR FILTRATION RATE. EMERGENCY CENTER, ESTIMATED GFR IS NOT [facility] APPLICABLE FOR DIALYSIS PATIENTS. Specimen Blood - Arm, Left Performing Organization Address City/State/Zipcode Phone Number BARBARA FORRESTER [address] [place] [address] [facility], [facility] * Venous doppler arm, right (03/23/2018 1:00 PM CDT) Ejection Fraction [facility] [employer] Impressions Performed At Right Impression [facility] 1. There is no deep venous obstruction in the jugular, subclavian, axillary, MKCKESSON CPACS brachial, radial or ulnar veins. 2. There is no superficial venous obstruction in the cephalic or basilic veins. Conclusions Summary Venous duplex imaging and compression of the right upper extremity were performed. The veins were adequately visualized. The right venous system was patent and compressible with no evidence of thrombus. Signature Velocities are measured in cm/s ; Diameters are measured in cm Narrative Performed At [facility] - Upper Extremities Veins [facility] Demographics MKCK[facility] CP[facility] Patient NameLEBRITTANI LUCAS Date of Study 03/23/2018 SINA Age 32 Visit [id number] GenderFemale Date of 1985 Number Referring Rachael Jackson Room Number ED5 Physician Skirt Trimmer Liban Stewart MD, TERE Procedure Type of Study: Veins: Upper Extremities Veins, VENOUS DOPPLER ARM, RIGHT. Indications for Study:Arm injury. Patient Status:STAT. Study Location:Portable. Technical Quality:Adequate visualization. Risk Factors History of Disease +---------+----+ + !Diagnosis!Date!Comments ! +---------+----+ + !Other!!HTN, Morbid Obesity ! +---------+----+ + Procedure Note Interface, External Ris In - 03/23/2018 3:04 PM CDT [facility] - Upper Extremities Veins Demographics Patient Name BRITTANI SOLIS Date of Study 03/23/2018 SINA Age 32 Visit Number [id number] Gender Female Date of 1985 Number Referring Rachael Jackson Room Number ED5 Physician Skirt Trimmer Deangelo Ross Interpreting GILBERT WelchT Physician , TERE Procedure Type of Study: Veins: Upper Extremities Veins, VENOUS DOPPLER ARM, RIGHT. Indications for Study:Arm injury. Patient Status:STAT. Study Location:Portable. Technical Quality:Adequate visualization. Risk Factors History of Disease +---------+----+ + !Diagnosis!Date!Comments ! +---------+----+ + !Other ! !HTN, Morbid Obesity ! +---------+----+ + Impressions Right Impression 1. There is no deep venous obstruction in the jugular, subclavian, axillary, brachial, radial or ulnar veins. 2. There is no superficial venous obstruction in the cephalic or basilic veins. Conclusions Summary Venous duplex imaging and compression of the right upper extremity were performed. The veins were adequately visualized. The right venous system was patent and compressible with no evidence of thrombus. Signature Velocities are measured in cm/s ; Diameters are measured in cm Performing Organization Address City/State/[facility] Phone Number [facility] * PT/aPTT (03/23/2018 10:39 AM CDT) Protime 11.0 9.8 - 12.0 seconds [facility] [place] INR 1.0 <=5.9 [facility] PTT 23.5 (L) 25.8 - 34.5 seconds [facility] [place] Specimen Blood - Arm, Left Narrative Performed At RECOMMENDED COUMADIN/WARFARIN INR THERAPY RANGES [facility] STANDARD DOSE: 2.0 - 3.0 Includes: PROPHYLAXIS for venous thrombosis, [facility] MEDICAL systemic embolization; TREATMENT for venous thrombosis and/or pulmonary embolus. [facility] HIGH RISK: Target INR is 2.5-3.5 for patients with mechanical heart valves. EMERGENCY [facility] Performing Organization Address [facility] Cliniccode Phone Number [facility] [address] [place] [address] [facility], [facility] * D-dimer (03/23/2018 10:39 AM CDT) D-Dimer, Quant 0.92 (H) <0.50 MG/L FEU [facility] [place] Specimen Blood - Arm, Left Narrative Performed At REGARDING D-DIMER RESULTS: Results of this D-Dimer test should always be [facility] interpreted in conjunction with the patient's medical history, clinical [facility] MEDICAL presentation and other findings. DVT clinical diagnosis should not be based on [facility] the results of [facility] D-Dimer alone. EMERGENCY [place] Performing Organization Address [facility] Clinic[facility] Phone Number [facility] [address] [place] [address] [facility] [place] * XR forearm 2 views right (03/23/2018 10:34 AM CDT) Narrative Performed At FINAL REPORT [facility] TECHNIQUE: Frontal and lateral views of the right forearm. Frontal, oblique, and lateral views of the right hand. INDICATION: Arm injury. COMPARISON: None. FINDINGS: Right forearm: No acute fractures or dislocations. Joint spaces are within normal limits. Soft tissue swelling of the dorsal aspect of the distal forearm. Right hand: No acute fracture or dislocation. Possible old, healed fracture of the metacarpal of the small finger. The joint spaces are within normal limits. Soft tissue swelling of the hand. IMPRESSION: No acute osseous abnormalities of the right hand or forearm. Soft tissue swelling of the distal forearm and hand. Signed: Joseph Cano MD Report Verified Date/Time:03/23/2018 10:43:02 Reading Location: [address] Body Reading Room Procedure Note Interface, External Ris In - 03/23/2018 10:45 AM CDT FINAL REPORT TECHNIQUE: Frontal and lateral views of the right forearm. Frontal, oblique, and lateral views of the right hand. INDICATION: Arm injury. COMPARISON: None. FINDINGS: Right forearm: No acute fractures or dislocations. Joint spaces are within normal limits. Soft tissue swelling of the dorsal aspect of the distal forearm. Right hand: No acute fracture or dislocation. Possible old, healed fracture of the metacarpal of the small finger. The joint spaces are within normal limits. Soft tissue swelling of the hand. IMPRESSION: No acute osseous abnormalities of the right hand or forearm. Soft tissue swelling of the distal forearm and hand. Signed: Joseph Cano MD Report Verified Date/Time: 03/23/2018 10:43:02 Reading Location: [address] Body Reading Room Performing Organization Address City/State/Zipcode Phone Number [facility] * XR hand 3 views right (03/23/2018 10:34 AM CDT) Narrative Performed At FINAL REPORT [facility] TECHNIQUE: Frontal and lateral views of the right forearm. Frontal, oblique, and lateral views of the right hand. INDICATION: Arm injury. COMPARISON: None. FINDINGS: Right forearm: No acute fractures or dislocations. Joint spaces are within normal limits. Soft tissue swelling of the dorsal aspect of the distal forearm. Right hand: No acute fracture or dislocation. Possible old, healed fracture of the metacarpal of the small finger. The joint spaces are within normal limits. Soft tissue swelling of the hand. IMPRESSION: No acute osseous abnormalities of the right hand or forearm. Soft tissue swelling of the distal forearm and hand. Signed: Joseph Cano MD Report Verified Date/Time:03/23/2018 10:43:02 Reading Location: [address] Body Reading Room Procedure Note Interface, External Ris In - 03/23/2018 10:45 AM CDT FINAL REPORT TECHNIQUE: Frontal and lateral views of the right forearm. Frontal, oblique, and lateral views of the right hand. INDICATION: Arm injury. COMPARISON: None. FINDINGS: Right forearm: No acute fractures or dislocations. Joint spaces are within normal limits. Soft tissue swelling of the dorsal aspect of the distal forearm. Right hand: No acute fracture or dislocation. Possible old, healed fracture of the metacarpal of the small finger. The joint spaces are within normal limits. Soft tissue swelling of the hand. IMPRESSION: No acute osseous abnormalities of the right hand or forearm. Soft tissue swelling of the distal forearm and hand. Signed: Joseph Cano MD Report Verified Date/Time: 03/23/2018 10:43:02 Reading Location: [address] Body Reading Room Performing Organization Address City/State/Zipcode Phone Number [facility] * Urinalysis w/Microscopic (09/26/2017 4:01 AM CDT) Color, UA Yellow [facility], [facility] [place] Clarity, UA Hazy [facility], [facility] [place] Specific [place], UA 1.025 1.001 - 1.035 [facility] pH, UA 6.0 5.0 - 8.0 [facility] [place] Protein, UA 30 mg/dL (A) Negative [facility] Glucose, UA Negative Negative [facility], [facility] [place] Ketones, UA 15 mg/dL (A) Negative [facility], [facility] Bilirubin, UA Positive (A) Negative [facility], [facility] Blood, UA Large (A) Negative [facility] Nitrite, UA Negative Negative [facility] Leukocytes, UA Small (A) Negative [facility], [facility] Urobilinogen, UA 1.0 0.2 - 1.0 mg/dL [facility] Bacteria, UA Few [facility] Mucus Many [facility] RBC, UA 50-100 /HPF [facility] WBC, UA 20-50 /HPF [facility] SQUAMOUS EPITHELIAL 5-10 /HPF [facility] [place] Specimen Source [facility] Specimen Urine - Urine, Clean Catch Performing Organization Address City/[facility] Clinic[facility] Phone Number [facility] [address] [place] [address] [facility] * Lipase (09/26/2017 3:49 AM CDT) Lipase 105 40 - 240 U/L [facility] Specimen Blood - Arm, Right Performing Organization Address [facility] Phone Number [facility] [address] [place] [address] [facility] * Comprehensive metabolic panel (09/26/2017 3:49 AM CDT) Protein, Total 8.2 6.0 - 8.5 gm/dL [facility] [place] Albumin 3.6 3.5 - 5.0 g/dL [facility], [facility] [place] Alkaline Phosphatase 75 30 - 115 U/L [facility] Total Bilirubin 0.1 0.1 - 1.2 mg/dL [facility] [place] Sodium 143 135 - 148 meq/L [facility] Potassium 3.8 3.6 - 5.5 meq/L [facility] [place] Chloride 100 98 - 106 meq/L [facility] [facility] [place] CO2 32 24 - 32 meq/L [facility] [place] BUN 14 10 - 26 mg/dL [facility] [place] Creatinine 0.60 0.50 - 1.20 mg/dL [facility] [place] Glucose 127 (H) 70 - 110 mg/dL [facility] [place] Calcium 8.8 8.5 - 10.5 mg/dL [facility] [place] AST 37 5 - 40 U/L [facility], [facility] ALT 61 (H) 5 - 50 U/L [facility], [facility] [place] EGFR 139Comment: ESTIMATED GFR IS mL/min/1.73 sq m [facility] NOT ACCURATE CREATININE [facility] MEDICAL CLEARANCE IN PREDICTING CENTER, [facility] GLOMERULAR FILTRATION RATE. EMERGENCY CENTER, ESTIMATED GFR IS NOT [facility] APPLICABLE FOR DIALYSIS PATIENTS. Specimen Blood - Arm, Right Performing Organization Address City/State/Zipcode Phone Number [facility]BAR[facility] [address] [place] [address] [facility], [facility] after 09/16/2017 Insurance Payer Benefit Subscriber ID Type Phone Address Plan / Group MEDICAID - MEDICAID [facility] xxxxxxxxx Medicaid CARE COMM STAR Contracted PLAN
== END 2018-09-17 01:20 | disposition left against medical advice (07) ==
LOC: FSED 00:38
DX: M79.602 Pain in left arm (principal)